=== PATIENT | female | born 1935 | race Hispanic/Latino ===

== ENCOUNTER 2018-02-11 15:09 | Emergency (ER) | payer MEDICARE ==
[2018-02-11] MEDS ORDERED: TETANUS/DIPHTHERIA TOXOID [ADULT] 0.5 ML VIAL IM ONE (15:27)
[2018-02-11] MEDS ORDERED: ACETAMINOPHEN EXTRA STRENGTH 500 MG TABLET ONE (15:27)
== END 2018-02-11 17:42 | disposition home or self-care (01) ==
LOC: EDH 15:09
DX: S01.01XA Laceration without foreign body of scalp, initial encounter (principal); R03.0 Elevated blood-pressure reading, without diagnosis of hypertension; E78.5 Hyperlipidemia, unspecified; W18.39XA Other fall on same level, initial encounter; Y93.89 Activity, other specified; Y92.090 Kitchen in other non-institutional residence as the place of occurrence of the external cause; Y99.8 Other external cause status
CPT/HCPCS: 70450; 72125; 90471; 90714

== ENCOUNTER 2020-02-17 15:59 | Inpatient (IN) | payer MEDICARE ==
[~2020-02-17] VITALS: Ht 167.6 cm; Wt 78.2 kg
[2020-02-17 16:42] LABS: BASOPHILS % (AUTO) 0.3 % (0.0-5.0); HEMATOCRIT 37.5 % (36-48); LYMPHOCYTES % (AUTO) 7.4 % (21.0-51.0); MEAN CORPUSCULAR HEMOGLOBIN 30.1 pg (27.0-33.0); MEAN CORPUSCULAR HGB CONC 33.1 g/dL (32.0-36.0); MONOCYTES % (AUTO) 5.6 % (3.0-13.0); PLATELET COUNT (AUTO) 346 K/uL (130-400); RED BLOOD CELL COUNT(AUTO) 4.12 MIL/uL (4.00-5.50); RED CELL DISTRIBUTION WIDTH 14.1 % (11.0-15.5); WHITE BLOOD COUNT (AUTO) 21.2 K/uL (4.8-10.8)
[2020-02-17 16:55] LABS: POTASSIUM 4.1 mmol/L (3.5-5.1)
[2020-02-17 16:58] LABS: INR 0.98 (0.85-1.15); PARTIAL THROMBOPLASTIN TIME 27.3 SEC (26.3-35.5); PROTHROMBIN TIME 10.6 SEC (9.6-11.6)
[2020-02-17] MEDS ORDERED: HYDROMORPHONE 1 MG/1 ML AMP ONE (16:59)
[2020-02-17] MEDS ORDERED: ONDANSETRON HCL 4 MG/2 ML VIAL ONE (16:59)
[2020-02-17 17:02] LABS: ALBUMIN 3.8 g/dL (3.5-5.0); BILIRUBIN,TOTAL 0.3 mg/dL (0.2-1.0); TOTAL PROTEIN, SERUM 8.5 g/dL (6.0-8.3)
[2020-02-17 17:47] LABS: APPEARANCE,URINE CLOUDY (CLEAR); BILIRUBIN,URINE NEGATIVE (NEGATIVE); COLOR,URINE YELLOW (YELLOW); GLUCOSE, URINE (UA) NEGATIVE (NEGATIVE); KETONES,URINE NEGATIVE (NEGATIVE); LEUKOCYTE ESTERASE ,URINE MODERATE (NEGATIVE); NITRATE,URINE POSITIVE (NEGATIVE); OCCULT BLOOD,URINE TRACE-INTACT (NEGATIVE); PH,URINE 5.5 (5.0-8.0); PROTEIN,URINE TRACE mg/dL (NEGATIVE); UROBILINOGEN,URINE 0.2 mg/dL (0.2-1.0)
[2020-02-17] MEDS ORDERED: NITROGLYCERIN 1GM/1 INCH PACKET TD ONE (17:49)
[2020-02-17 18:16] LABS: BACTERIA,URINE Moderate /HPF (None Seen); WBC,URINE 51-100 /HPF (0-1)
[2020-02-17 18:17] LABS: SQUAMOUS EPITHELIAL CELL,UR Rare /HPF (0-2)
[2020-02-17] MEDS ORDERED: CEFTRIAXONE SODIUM 1 GM ONE (18:42)
[2020-02-17] MEDS ORDERED: SODIUM CHLORIDE 0.9% 100 ML IV ONE (18:44)
[2020-02-17] MEDS: SODIUM CHLORIDE 0.9% 1000ML 1,000 ML IV SCH (19:04)
[2020-02-17] MEDS ORDERED: LEVOFLOXACIN 500 MG/D5W 100 ML 100 ML ONE (19:04)
[2020-02-17] MEDS ORDERED: ACETAMINOPHEN 325 MG TAB PO PRN (19:15)
[2020-02-17] MEDS ORDERED: ONDANSETRON HCL 4 MG/2 ML VIAL IV PRN (19:15)
[2020-02-17] MEDS ORDERED: HYDRALAZINE HCL 20 MG/ML VIAL IV PRN (19:45)
[2020-02-17 20:06] LABS: HEMOGLOBIN A1C 5.8 % (4.0-6.0)
[2020-02-17 20:08] LABS: CHOLESTEROL 155 mg/dL (<200); HDL CHOLESTEROL 110 mg/dL (35-85); LDL DIRECT 78 mg/dL (0-99); TRIGLYCERIDES 82 mg/dL (30-200)
[2020-02-17] MEDS ORDERED: ATORVASTATIN CALCIUM 20 MG TABLET ONE (20:59)
[2020-02-17] MEDS: METOPROLOL TARTRATE 25 MG TAB PO SCH (21:00)
[2020-02-17] MEDS: ATORVASTATIN CALCIUM 20 MG TABLET PO SCH (21:00)
[2020-02-17] MEDS ORDERED: FAMOTIDINE/PF 20 MG/2 ML VIAL IV ONE (21:00)
[2020-02-17] MEDS ORDERED: ACETAMINOPHEN 325 MG TAB ONE (21:33)
[2020-02-17] MEDS ORDERED: MORPHINE SULFATE 4 MG/1ML SYG ONE (21:34)
[2020-02-17 23:00] VITALS: BP 125/73
--- NOTE | 2020-02-17 23:05 | NUR ---
ER REPORT, RENO HOLGUIN. PT ADMITTED DUE TO HIP FRACTURE. HAD FALL AT HOME AFTER FEELING DIZZY.
[2020-02-18] MEDS ORDERED: MULT-1192 PO (01:08)
[2020-02-18] MEDS ORDERED: PRAV40TA3 PO (01:08)
[2020-02-18] MEDS ORDERED: TRAM50TA4 PO (01:08)
[2020-02-18] MEDS: MORPHINE SULFATE 2 MG/ML 1ML SYG IV PRN ×2 (01:30→09:05)
--- NOTE | 2020-02-18 01:30 | NUR ---
PT AA03, LUCILLE. NO DISTRESS NOTED. IS IN PAIN TO RIGHT HIP, INSTRUCTED MULTIPLE TIMES TO KEEP RIGHT LEG STILL. MORPHINE GIVEN PRN. PT ABLE TO RECALL MEDICAL HISTORY. STATES WAS AT HOME, FELT DIZZY, AND FELL. SHE STATES CONCERNS ABOUT HER , SHE SAYS SHE CARES FOR HIM BECAUSE HE IS 87 AND REQUIRES HELP.
[2020-02-18 03:00] VITALS: BP 108/57
[2020-02-18 03:48] LABS: BASOPHILS % (AUTO) 0.4 % (0.0-5.0); EOSINOPHILS % (AUTO) 1.2 % (0.0-8.0); HEMATOCRIT 32.2 % (36-48); LYMPHOCYTES % (AUTO) 25.6 % (21.0-51.0); MEAN CORPUSCULAR HEMOGLOBIN 29.8 pg (27.0-33.0); MEAN CORPUSCULAR HGB CONC 32.6 g/dL (32.0-36.0); MEAN CORPUSCULAR VOLUME 91.5 fL (79-99); MONOCYTES % (AUTO) 11.2 % (3.0-13.0); NEUTROPHILS % (AUTO) 61.2 % (40.0-77.0); PLATELET COUNT (AUTO) 274 K/uL (130-400); RED BLOOD CELL COUNT(AUTO) 3.52 MIL/uL (4.00-5.50); RED CELL DISTRIBUTION WIDTH 14.3 % (11.0-15.5); WHITE BLOOD COUNT (AUTO) 12.9 K/uL (4.8-10.8)
[2020-02-18 03:59] LABS: CREATININE 0.9 mg/dL (0.5-1.5); POTASSIUM 4.2 mmol/L (3.5-5.1)
[2020-02-18] MEDS: SODIUM CHLORIDE 0.9% 1000ML 1,000 ML IV SCH ×2 (05:04→13:16)
[2020-02-18 07:00] VITALS: BP 115/57
[2020-02-18] MEDS: ASPIRIN 325 MG TABLET PO SCH (09:00)
[2020-02-18] MEDS: METOPROLOL TARTRATE 25 MG TAB PO SCH ×2 (09:05→20:42)
[2020-02-18] MEDS: FAMOTIDINE/PF 20 MG/2 ML VIAL IV SCH (09:05)
[2020-02-18 11:00] VITALS: BP 113/50
[2020-02-18] MEDS: TRAMADOL HCL 50 MG TABLET PO SCH ×2 (13:16→20:40)
[2020-02-18] MEDS: LIDOCAINE 5% TOPICAL PATCH TP SCH (13:17)
[2020-02-18] MEDS: ACETAMINOPHEN 325 MG TAB PO SCH ×2 (13:17→20:41)
--- NOTE | 2020-02-18 15:07 | NUR ---
INITIAL SPOKEK TO PATIENT AT BEDSIDE- LIVES [place], PREVIOUS TO FALL VERY INDPENDNET, USES TWO CANES, HOME SAFE AND ACCESSIBLE, FELL IN GARAGE, SPOUSE DEAF; ASKE DME TO CALL DAUGHTER- SPOKE TO DAUGHTER ARMAAN, STATES HERE TO LOOK AFTER PATIENT/SPOUSE; STATES FAMILY VERY SUPPORTIVE AND PREFERENCE WOULD BE TO TAKE PATIENT HOME AFTER SURGERY AND HAVE HOME HEALTH COME- DISCUSSED PROCESS, WILL SEND [facility] .GOV TO DAUGHTER FOR COMPANY NAMES. STILL CAITLIN JONES CONSULT . DCP UNCERTAIN AT THIS TIME, PROBABLY HOME WITH HOME HEALTH IF PPOST OP COURSE IS SMOOTH. Addendum: 02/18/20 at 1512 by KRISTAN MANDUJANO RN CM Amended: Links added.
[2020-02-18 16:00] VITALS: BP 102/47
[2020-02-18] MEDS: CEFTRIAXONE SODIUM 1 GM IV SCH (18:07)
[2020-02-18 20:00] VITALS: BP 133/65
[2020-02-18] MEDS: ATORVASTATIN CALCIUM 20 MG TABLET PO SCH (20:39)
[2020-02-19] VITALS (7 sets, daily range): BP systolic 103–140; BP diastolic 51–65
[2020-02-19] MEDS: SODIUM CHLORIDE 0.9% 1000ML 1,000 ML IV SCH ×3 (00:48→20:57)
[2020-02-19] MEDS: ACETAMINOPHEN 325 MG TAB PO SCH ×3 (04:48→18:12)
[2020-02-19] MEDS: TRAMADOL HCL 50 MG TABLET PO SCH ×3 (04:49→18:12)
[2020-02-19] MEDS: LIDOCAINE 5% TOPICAL PATCH TP SCH (07:50)
[2020-02-19] MEDS: MULTIVITAMIN TABLET PO SCH (08:00)
[2020-02-19] MEDS: FAMOTIDINE/PF 20 MG/2 ML VIAL IV SCH (08:09)
[2020-02-19] MEDS ORDERED: ASPIRIN 81MG TAB.CHEW ONE (08:09)
[2020-02-19] MEDS: METOPROLOL TARTRATE 25 MG TAB PO SCH ×2 (08:11→20:57)
[2020-02-19] MEDS: ASPIRIN 325 MG TABLET PO SCH (08:11)
[2020-02-19] MEDS: SIMVASTATIN 20 MG TABLET PO SCH (09:00)
--- NOTE | 2020-02-19 14:14 | NUR ---
AMBAR RECEIVED CALL FROM DR VILLALTA- STATED PT LOW RISK FOR SX.
--- NOTE | 2020-02-19 14:15 | NUR ---
DR ZIMMERMAN CALLED DR ZIMMERMAN OFFICE- SPOKETO NIMO AND STATED PT IS ALREADY ON SCHEDULE FOR 02/19 @ 1100, LEEP PT NPO AFTER MN. - DR PRUETT ORDERS. CARRIED OUT. PT MADE AWARE AND VERBALIZED UNDERSTANDING
[2020-02-19] MEDS: MORPHINE SULFATE 2 MG/ML 1ML SYG IV PRN ×2 (15:58→21:01)
[2020-02-19] MEDS: CEFTRIAXONE SODIUM 1 GM IV SCH ×3 (17:02→20:57)
[2020-02-19] MEDS: ATORVASTATIN CALCIUM 20 MG TABLET PO SCH (20:57)
[2020-02-20] VITALS (27 sets, daily range): BP systolic 110–181; BP diastolic 51–95
[2020-02-20] MEDS: TRAMADOL HCL 50 MG TABLET PO SCH ×3 (03:04→18:09)
[2020-02-20] MEDS: ACETAMINOPHEN 325 MG TAB PO SCH ×3 (03:04→18:10)
[2020-02-20 04:12] LABS: BASOPHILS % (AUTO) 0.4 % (0.0-5.0); EOSINOPHILS % (AUTO) 1.1 % (0.0-8.0); HEMATOCRIT 28.4 % (36-48); LYMPHOCYTES % (AUTO) 20.2 % (21.0-51.0); MEAN CORPUSCULAR HEMOGLOBIN 29.8 pg (27.0-33.0); MEAN CORPUSCULAR HGB CONC 32.4 g/dL (32.0-36.0); MEAN CORPUSCULAR VOLUME 91.9 fL (79-99); MONOCYTES % (AUTO) 12.6 % (3.0-13.0); NEUTROPHILS % (AUTO) 65.1 % (40.0-77.0); PLATELET COUNT (AUTO) 227 K/uL (130-400); RED BLOOD CELL COUNT(AUTO) 3.09 MIL/uL (4.00-5.50); RED CELL DISTRIBUTION WIDTH 14.4 % (11.0-15.5); WHITE BLOOD COUNT (AUTO) 13.5 K/uL (4.8-10.8)
[2020-02-20 04:29] LABS: INR 0.99 (0.85-1.15); PARTIAL THROMBOPLASTIN TIME 28.9 SEC (26.3-35.5); PROTHROMBIN TIME 10.7 SEC (9.6-11.6)
[2020-02-20 04:35] LABS: CARBON DIOXIDE 24 mmol/L (21-32); CHLORIDE 103 mmol/L (101-111); CREATININE 0.7 mg/dL (0.5-1.5); GLOMERULAR FILTR. RATE CALC 85 mL/min (>60); GLUCOSE,RANDOM 102 mg/dL (70-105); PHOSPHORUS 2.5 mg/dL (2.5-4.9); POTASSIUM 3.9 mmol/L (3.5-5.1); SODIUM SERUM 135 mmol/L (136-145); UREA NITROGEN, BLOOD 13 mg/dL (7-18)
[2020-02-20 04:39] LABS: B-TYPE NATRIURETIC PEPTIDE 139 pg/mL (0-100)
[2020-02-20] MEDS ORDERED: MAGNESIUM 2GM PREMIX 50ML 50 ML IV PRN (05:30)
[2020-02-20] MEDS ORDERED: MAGNESIUM 2GM PREMIX 50ML 50 ML IV SCH (07:00)
[2020-02-20] MEDS: SODIUM CHLORIDE 0.9% 1000ML 1,000 ML IV SCH ×2 (07:04→17:04)
[2020-02-20] MEDS: MULTIVITAMIN TABLET PO SCH (08:00)
[2020-02-20] MEDS: ASPIRIN 325 MG TABLET PO SCH (08:51)
[2020-02-20] MEDS: SIMVASTATIN 20 MG TABLET PO SCH (08:52)
[2020-02-20] MEDS: CEFTRIAXONE SODIUM 1 GM IV SCH ×2 (08:55→20:44)
[2020-02-20] MEDS: METOPROLOL TARTRATE 25 MG TAB PO SCH ×2 (08:55→20:44)
[2020-02-20] MEDS: FAMOTIDINE/PF 20 MG/2 ML VIAL IV SCH (08:55)
--- NOTE | 2020-02-20 10:59 | NUR ---
TAKEN TO OR VIA BED BY KAROLINE ROE AND RADHA MARIO RN. STABLE.
[2020-02-20] MEDS: LIDOCAINE 5% TOPICAL PATCH TP SCH (11:00)
[2020-02-20] MEDS ORDERED: LACTATED RINGERS 1000ML 1,000 ML IV ONE (11:21)
[2020-02-20] MEDS ORDERED: PROPOFOL 10 MG/ML 20ML VIAL IV ONE (11:23)
[2020-02-20] MEDS ORDERED: GLYCOPYRROLATE 1 MG/5 ML SYRINGE ONE (11:23)
[2020-02-20] MEDS ORDERED: LIDOCAINE PF 2% 5ML ABBOJECT ONE ×2 (11:23→11:24)
[2020-02-20] MEDS ORDERED: ROCURONIUM 10MG/1ML SYR 10 MG/ML ML ONE (11:23)
[2020-02-20] MEDS ORDERED: FENTANYL CITRATE PF 50 MCG/1 ML 2ML VIAL ONE (11:24)
[2020-02-20] MEDS ORDERED: PHENYLEPHRINE HCL 10 MG/ML 1ML VIAL IV ONE (11:44)
[2020-02-20] MEDS ORDERED: CEFAZOLIN SODIUM 1 GM VIAL ONE ×2 (11:49→11:51)
[2020-02-20] MEDS ORDERED: NEOSTIGMINE 5MG/5ML SYR IV ONE (12:48)
--- NOTE | 2020-02-20 14:20 | NUR ---
BACK FROM SURGERY. AWAKE, ALERT AND ORIENTED X3. APPEARS COMFORTABLE. DRESSING TO RIGHT HIP AREA CLEAN DRY AND INTACT. WILL RESUME PRE OP ORDERS. SPOKE WITH PATIENT'S SON, KIMBERLEY AND INFORMED HIM OF PATIENT'S STATUS. WILL CONTINUE TO MONITOR.
--- NOTE | 2020-02-20 16:22 | NUR ---
FAMILY WANTING PATIENT TO GO [place] WITH HOME HEALTH WHEN READY WILL PREPARE REFERRLA JODIET, WAIT FOR ORDER Addendum: 02/20/20 at 1623 by KRISTAN MANDUJANO RN CM Amended: Links added.
[2020-02-20] MEDS: ATORVASTATIN CALCIUM 20 MG TABLET PO SCH (20:44)
[2020-02-20] MEDS: MORPHINE SULFATE 2 MG/ML 1ML SYG IV PRN (20:45)
[2020-02-21] MEDS: ACETAMINOPHEN 325 MG TAB PO SCH ×3 (03:39→22:05)
[2020-02-21] MEDS: TRAMADOL HCL 50 MG TABLET PO SCH ×3 (03:39→22:04)
[2020-02-21] MEDS: SODIUM CHLORIDE 0.9% 1000ML 1,000 ML IV SCH ×3 (03:55→22:00)
[2020-02-21 04:00] VITALS: BP 114/64
[2020-02-21 05:15] LABS: BASOPHILS % (AUTO) 0.2 % (0.0-5.0); EOSINOPHILS % (AUTO) 0.1 % (0.0-8.0); HEMATOCRIT 28.7 % (36-48); MEAN CORPUSCULAR HEMOGLOBIN 30.1 pg (27.0-33.0); MEAN CORPUSCULAR HGB CONC 32.4 g/dL (32.0-36.0); MEAN CORPUSCULAR VOLUME 92.9 fL (79-99); MONOCYTES % (AUTO) 11.4 % (3.0-13.0); NEUTROPHILS % (AUTO) 74.8 % (40.0-77.0); PLATELET COUNT (AUTO) 295 K/uL (130-400); RED BLOOD CELL COUNT(AUTO) 3.09 MIL/uL (4.00-5.50); RED CELL DISTRIBUTION WIDTH 14.4 % (11.0-15.5)
[2020-02-21 06:10] LABS: CREATININE 0.7 mg/dL (0.5-1.5); MAGNESIUM 1.9 mg/dL (1.80-2.40); POTASSIUM 4.1 mmol/L (3.5-5.1)
[2020-02-21] MEDS: MORPHINE SULFATE 2 MG/ML 1ML SYG IV PRN (07:27)
[2020-02-21 07:30] VITALS: BP 114/52
[2020-02-21] MEDS ORDERED: ASPIRIN 81MG TAB.CHEW ONE (08:44)
[2020-02-21] MEDS: FAMOTIDINE/PF 20 MG/2 ML VIAL IV SCH (08:53)
[2020-02-21] MEDS: SIMVASTATIN 20 MG TABLET PO SCH (08:54)
[2020-02-21] MEDS: METOPROLOL TARTRATE 25 MG TAB PO SCH ×2 (08:54→22:06)
[2020-02-21] MEDS: MULTIVITAMIN TABLET PO SCH (08:54)
[2020-02-21] MEDS: CEFTRIAXONE SODIUM 1 GM IV SCH ×2 (08:54→22:06)
[2020-02-21] MEDS: ASPIRIN 325 MG TABLET PO SCH (08:54)
[2020-02-21] MEDS: IRON SUCROSE COMPLEX 100 MG in SODIUM CHLORIDE 0.9% 50 ML IV SCH (09:00)
--- NOTE | 2020-02-21 10:43 | NUR ---
CALL TO DR. PRUETT OFFICE TO CONFIRM ACTIVITY PPOST OP. NO PT ORDERS? NO IS ORDER?--PRODUCT/INDUSTRY CONSULTANT STATES NWB FOR TOTAL HIP? ADVISED HER THAT PATIENT ARE USUALLY UP POST OP THAT DAY OR NEXT MORNING AND WE HAVE NO PT ORDER OR ACTIVITY ORDERS ASKED HER TO CONFIRM WITH DR. ZIMMERMAN, PLEASE, CALL BACK ORDERS ENTERD FOR IS AND PT EVAL- NEED WEIGHT BEARING STATUS
[2020-02-21 11:00] VITALS: BP 99/49
[2020-02-21] MEDS: ACETAMINOPHEN 325 MG TAB PO PRN (11:32)
[2020-02-21] MEDS: LIDOCAINE 5% TOPICAL PATCH TP SCH (11:44)
[2020-02-21] MEDS ORDERED: COMPOUND IV MISC 1 EACH IVSOLN MISC PRN (12:00)
[2020-02-21 16:00] VITALS: BP 105/61
[2020-02-21 19:42] VITALS: BP 156/75
[2020-02-21] MEDS: ATORVASTATIN CALCIUM 20 MG TABLET PO SCH (22:06)
[2020-02-21 23:35] VITALS: BP 115/57
[2020-02-22 03:55] VITALS: BP 154/70
[2020-02-22] MEDS: ACETAMINOPHEN 325 MG TAB PO SCH ×5 (05:57→21:01)
[2020-02-22] MEDS: TRAMADOL HCL 50 MG TABLET PO SCH ×3 (05:57→21:00)
[2020-02-22] MEDS: ACETAMINOPHEN 325 MG TAB PO PRN ×2 (06:01→07:46)
[2020-02-22 08:57] VITALS: BP 112/56
[2020-02-22] MEDS: ASPIRIN 325 MG TABLET PO SCH (09:00)
[2020-02-22] MEDS: SODIUM CHLORIDE 0.9% 1000ML 1,000 ML IV SCH ×2 (09:04→20:59)
[2020-02-22] MEDS ORDERED: ASPIRIN 81MG TAB.CHEW ONE (09:57)
[2020-02-22] MEDS: MULTIVITAMIN TABLET PO SCH (10:04)
[2020-02-22] MEDS: METOPROLOL TARTRATE 25 MG TAB PO SCH ×2 (10:04→21:00)
[2020-02-22] MEDS: SIMVASTATIN 20 MG TABLET PO SCH (10:04)
[2020-02-22] MEDS: IRON SUCROSE COMPLEX 100 MG in SODIUM CHLORIDE 0.9% 50 ML IV SCH (10:04)
[2020-02-22] MEDS: CEFTRIAXONE SODIUM 1 GM IV SCH ×2 (10:04→21:00)
--- NOTE | 2020-02-22 10:45 | NUR ---
REFERRAL IN PROCESS TO [facility] PATIENT AND FAMILY HAVE AGREED Addendum: 02/22/20 at 1046 by KRISTAN MANDUJANO RN CM Amended: Links added.
[2020-02-22] MEDS: LIDOCAINE 5% TOPICAL PATCH TP SCH (11:10)
[2020-02-22] MEDS: FAMOTIDINE/PF 20 MG/2 ML VIAL IV SCH (11:10)
[2020-02-22 11:40] VITALS: BP 112/54
[2020-02-22 12:40] LABS: BASOPHILS % (AUTO) 0.4 % (0.0-5.0); EOSINOPHILS % (AUTO) 1.6 % (0.0-8.0); HEMATOCRIT 25.2 % (36-48); LYMPHOCYTES % (AUTO) 23.7 % (21.0-51.0); MEAN CORPUSCULAR HEMOGLOBIN 30.3 pg (27.0-33.0); MEAN CORPUSCULAR HGB CONC 32.9 g/dL (32.0-36.0); MONOCYTES % (AUTO) 10.4 % (3.0-13.0); NEUTROPHILS % (AUTO) 63.5 % (40.0-77.0); PLATELET COUNT (AUTO) 276 K/uL (130-400); RED BLOOD CELL COUNT(AUTO) 2.74 MIL/uL (4.00-5.50); RED CELL DISTRIBUTION WIDTH 14.6 % (11.0-15.5); WHITE BLOOD COUNT (AUTO) 10.1 K/uL (4.8-10.8)
[2020-02-22 12:50] LABS: CREATININE 0.7 mg/dL (0.5-1.5); POTASSIUM 3.4 mmol/L (3.5-5.1)
[2020-02-22] MEDS ORDERED: POTASSIUM CHLORIDE 20 MEQ ERTAB PO SCH (13:00)
[2020-02-22] MEDS ORDERED: EPOETIN ALFA 10,000 UNIT/ML VIAL SQ SCH (13:00)
[2020-02-22] MEDS: LACTULOSE 20 GM/30 ML UDCUP PO PRN (13:16)
--- NOTE | 2020-02-22 15:30 | NUR ---
[facility] [place] SPOKE TO BUSINESS SEGMENT MANAGER AT REHAB AND SAID PATIENT WILL NOT BE ACCEPTED UNTIL SHE IS ABLE TO VOID. THE FELIX CATHETER WAS DISCONTINUED AT 1500 AND THE PATIENT IS DUE TO VOID BY 2100.
--- NOTE | 2020-02-22 16:15 | NUR ---
RDSCREEN - LOS X 5 DAYS Pt is s/p hip surgery. Decreased appetite. Octogenarian. BMI 27.5. Recommend Ensure BID Recommend continue Regular diet order RD to continue to monitor. Please notify as additional nutrition concerns arise. Thank you. Addendum: 02/22/20 at [address] RD Amended: Links added.
--- NOTE | 2020-02-22 17:28 | NUR ---
DUE TO VOID PATIENT HAS NOT VOIDED POST FELIX REMOVAL AT THIS TIME. ENCOURAGED HER TO DRINK SOME FLUIDS. PATIENT IS PENDING TRANSFER TO [facility] [place] POST VOID.
[2020-02-22 17:42] VITALS: BP 126/64
--- NOTE | 2020-02-22 19:17 | NUR ---
DUE TO VOID PATIENT HAS NOT VOIDED POST FELIX CATHETER REMOVAL AT 1500 DUE TO VOID BY 2100. [facility] SAID THEY WILL NOT TAKE PATIENT TONIGHT BECAUSE SHE HAS NOT VOIDED YET, THEY SAID SHE CAN BE TRANSFERRED IN AM ONCE SHE HAS VOIDED.
[2020-02-22 20:28] VITALS: BP 152/59
[2020-02-22] MEDS: ATORVASTATIN CALCIUM 20 MG TABLET PO SCH (21:00)
[2020-02-22 23:57] VITALS: BP 124/59
[2020-02-23] MEDS: LACTULOSE 20 GM/30 ML UDCUP PO PRN (03:34)
[2020-02-23 03:59] VITALS: BP 127/71
[2020-02-23] MEDS: TRAMADOL HCL 50 MG TABLET PO SCH (07:54)
[2020-02-23] MEDS: ACETAMINOPHEN 325 MG TAB PO SCH (07:54)
[2020-02-23] MEDS: SODIUM CHLORIDE 0.9% 1000ML 1,000 ML IV SCH ×2 (07:55→15:04)
[2020-02-23 08:00] VITALS: BP 165/92
--- NOTE | 2020-02-23 08:00 | NUR ---
NOTE AAOX3. DENIES PAIN OR DISCOMFORT. BBS CLEAR, NO COUGH NO PHLEGM. NO N/V SHE JUST HAD BM AND HAS BEEN VOIDING IN THE DIAPER. SHE IS NOT DOING TOO GOOD WITH P.T. SHE DOES NOT PARTICIPATE MUCH, DOES NOT TAKE STEPS WHEN SHE IS ASSISTED OUT OF BED TO CHAIR. SHE REPORTS TO ME THAT SHE IS SCARED TO GET OUT OF BED OR WALK. SHE PROMISED SHE WOULD TRY NEXT TIME P.T. GETS HER UP. SHE IS HERE WITH S/P FALL AT HOME WITH ORIF RIGHT HIP FRACTURE. DRESSING TO OUTER LATERAL ASPECT RIGHT HIP D/I.
--- NOTE | 2020-02-23 08:10 | NUR ---
PATIENT UPDATE Pt finally voided after 2200, incontinent of urine, yris care done, diaper changed. Last bm was 02/16, was given lactulose by the am shift, Prune juice given at this time. Still without any bm at 0200, another lactulose given at this time. Patient for discharge to [facility], transfer held last night bec they want the pt to be able to void before transferring the pt. Vital signs stable, continues on the pain meds, tylenol and tramadol q 8 hrs. scheduled.
[2020-02-23] MEDS ORDERED: ASPIRIN 81MG TAB.CHEW ONE (08:52)
[2020-02-23] MEDS: ASPIRIN 325 MG TABLET PO SCH (09:00)
[2020-02-23] MEDS: SIMVASTATIN 20 MG TABLET PO SCH (10:26)
[2020-02-23] MEDS: FAMOTIDINE/PF 20 MG/2 ML VIAL IV SCH (10:27)
[2020-02-23] MEDS: CEFTRIAXONE SODIUM 1 GM IV SCH (10:27)
[2020-02-23] MEDS: IRON SUCROSE COMPLEX 100 MG in SODIUM CHLORIDE 0.9% 50 ML IV SCH (10:27)
[2020-02-23] MEDS: MULTIVITAMIN TABLET PO SCH (10:28)
[2020-02-23] MEDS: METOPROLOL TARTRATE 25 MG TAB PO SCH (10:28)
[2020-02-23] MEDS: LIDOCAINE 5% TOPICAL PATCH TP SCH (11:00)
[2020-02-23 11:34] VITALS: BP 143/77
--- NOTE | 2020-02-23 12:30 | NUR ---
NOTE SPOKE TO NURSE BANDA RN AT [facility]. REPORT GIVEN. WILL TRANSFER PATIENT SOON ALL PAPERWORK IS COMPLETED FOR EMS AND DC PAPERWORK.
[2020-02-23] MEDS ORDERED: TRAMADOL HCL 50 MG TABLET PO SCH (14:00)
--- NOTE | 2020-02-23 14:30 | NUR ---
DRESSING DRESSING TO RIGHT HIP CHANGED AT THIS TIME. JAY SECURED IN PLACE (20). INCISION WITH EDGES APPROXIMATED NO REDNESS OR SWELLING NOTED. NO BLEEDING OR OTHER DRAINAGE NOTED.
--- NOTE | 2020-02-23 15:10 | NUR ---
NOTE PATIENT DISCHARGED TO [facility]. STABLE UPON LEAVING VIA EMS. REFER TO DC SUMMARY FOR DETAILS.
== END 2020-02-23 15:19 | DRG 470 ==
LOC: EDH 15:59 → EDHIP 19:04 → 4CH 23:43
PROVIDERS: ADMIT Hospitalist; ATTEND Hospitalist
PROC: 0SRR0J9 Replacement of Right Hip Joint, Femoral Surface with Synthetic Substitute, Cemented, Open Approach (ICD-10-PCS; principal; 2020-02-20 11:30)
PROC: 3E0T3BZ Introduction of Anesthetic Agent into Peripheral Nerves and Plexi, Percutaneous Approach (ICD-10-PCS; 2020-02-20 11:30)
DX: S72.031A Displaced midcervical fracture of right femur, initial encounter for closed fracture (principal); N39.0 Urinary tract infection, site not specified; E87.1 Hypo-osmolality and hyponatremia; Z16.12 Extended spectrum beta lactamase (ESBL) resistance; M21.151 Varus deformity, not elsewhere classified, right hip; B96.20 Unspecified Escherichia coli [E. coli] as the cause of diseases classified elsewhere; E78.5 Hyperlipidemia, unspecified; Z90.710 Acquired absence of both cervix and uterus; W01.0XXA Fall on same level from slipping, tripping and stumbling without subsequent striking against object, initial encounter; Y93.01 Activity, walking, marching and hiking; Y92.59 Other trade areas as the place of occurrence of the external cause; Y99.8 Other external cause status
CPT/HCPCS: 36415; 71045; 73502; 73560; 80048; 80053; 80061; 81001; 82550; 82948; 83036; 83540; 83550; 83605; 83735; 83880; 84100; 84145; 84484; 85025; 85045; 85610; 85730; 86850; 86900; 86901; 87040; 87077; 87088; 87186; 88305; 88311; 93005; 93306; 93356; 97039; 99291; C1776; G0378; J0690; J0696; J0885; J1170; J1756; J1956; J2001; J2270; J2370; J2405; J2704; J2710; J3010; J3475; J3490; J7030; J7120

== ENCOUNTER → 2022-10-23 | Outpatient (CLI) | payer OTHER ==
[~2022-10-23] MED LIST: MULT-1192 PO; PRAV40TA3 PO; TRAM50TA4 PO
== END | disposition home or self-care (01) ==
LOC: RAH 09:54
PROVIDERS: ATTEND Physical Medicine & Rehabilitation
DX: M48.02 Spinal stenosis, cervical region (principal); M54.51 Vertebrogenic low back pain
CPT/HCPCS: 72050

== ENCOUNTER → 2022-10-26 | Outpatient (CLI) | payer OTHER | END | disposition home or self-care (01) | LOC: RAH 10:33 | PROVIDERS: ATTEND Physician Assistant | DX: M50.322 Other cervical disc degeneration at C5-C6 level (principal); M21.371 Foot drop, right foot; R26.89 Other abnormalities of gait and mobility; M48.02 Spinal stenosis, cervical region | CPT/HCPCS: 72141 ==

== ENCOUNTER → 2022-10-29 | Outpatient (CLI) | payer OTHER | END | disposition home or self-care (01) | LOC: RAH 09:13 | PROVIDERS: ATTEND Physical Medicine & Rehabilitation | DX: R26.89 Other abnormalities of gait and mobility (principal); M21.371 Foot drop, right foot; M48.02 Spinal stenosis, cervical region | CPT/HCPCS: 70551 ==

== ENCOUNTER → 2024-05-23 | Outpatient (CLI) | payer OTHER | END | disposition home or self-care (01) | LOC: RAH 12:28 | PROVIDERS: ATTEND Physician Assistant | DX: S33.140A Subluxation of L4/L5 lumbar vertebra, initial encounter (principal); M48.061 Spinal stenosis, lumbar region without neurogenic claudication; M54.51 Vertebrogenic low back pain; M21.371 Foot drop, right foot; X58.XXXA Exposure to other specified factors, initial encounter; Y93.89 Activity, other specified; Y92.89 Other specified places as the place of occurrence of the external cause; Y99.8 Other external cause status | CPT/HCPCS: 72148 ==